=== PATIENT | female | born 1940 | race Caucasian/White ===

== ENCOUNTER → 2024-08-31 13:42 | Outpatient (REF) | payer MEDICARE, BC, SELFPAY | LOC: WDC 13:42 | PROVIDERS: ATTENDING PHYSICIAN Internal Medicine | DX: Z12.31 Encounter for screening mammogram for malignant neoplasm of breast (principal) | CPT/HCPCS: 77063; 77067 ==

== ENCOUNTER → 2025-03-18 09:08 | Outpatient (REF) | payer MEDICARE, BC, SELFPAY ==
[2025-03-18 12:42] LABS: % Basophils 0.8 % (0-2); % Eosinophils 1.4 % (0-6); % Immature Granulocytes 0.3 % (0-0.5); % Lymphocytes 43.9 % (20.5-51.1); % Neutrophils 43.6 % (42.2-75.2); Absolute Basophils 0.1 10^3/uL (0-0.2); Absolute Eosinophils 0.1 10^3/uL (0-0.7); Absolute Lymphocytes 3.5 10^3/uL (1.2-3.4); Absolute Monocytes 0.8 10^3/uL (0.1-0.6); Absolute Neutrophils 3.5 10^3/uL (1.4-6.5); Hematocrit 40.3 % (37.0-47.0); Hemoglobin 13.5 g/dL (12.0-16.0); Mean Corp Hgb Conc. 33.5 g/dL (33.0-37.0); Mean Corpuscular Hgb 30.9 pg (27.0-31.0); Mean Corpuscular Volume 92.2 fL (81.0-99.0); Mean Platelet Volume 11.1 fL (7.4-10.4); Nucleated Red Blood Cells % 0 %; Platelet Count 250 10^3/uL (130-400); Red Blood Cell Count 4.37 10^6/uL (4.20-5.40); Red Cell Dist. Width 13.2 % (11.5-14.5)
[2025-03-18 13:17] LABS: TSH Reflex To Free T4 0.05 uIU/ml (0.47-4.68)
[2025-03-18 13:27] LABS: ALT (SGPT) 14 U/L (0-35); AST (SGOT) 26 U/L (14-36); Albumin 4.3 g/dl (3.5-5.0); Alkaline Phosphatase 58 U/L (38-126); Blood Urea Nitrogen 17 mg/dl (7-17); Calcium 9.5 mg/dl (8.4-10.2); Carbon Dioxide 27 mmol/L (22-30); Chloride 103 mmol/L (98-107); Glucose 93 mg/dl (70-99); HDL Cholesterol 88 mg/dl; LDL Cholesterol, Calculated 104 mg/dl; Potassium 3.7 mmol/L (3.5-5.1); Sodium 138 mmol/L (135-145); Total Bilirubin 0.6 mg/dl (0.2-1.3); Total Cholesterol 213 mg/dl (50-199); Total Protein 6.8 g/dl (6.3-8.2); Triglyceride 106 mg/dl (10-149); Very Low Density Lipoprotein 21 mg/dl (0-30); eGFR 56.25
[2025-03-18 13:46] LABS: Free T4 1.84 ng/dl (0.78-2.19)
== END ==
LOC: HWLAB 09:08
PROVIDERS: ATTENDING PHYSICIAN Internal Medicine
DX: I10 Essential (primary) hypertension (principal); E03.9 Hypothyroidism, unspecified
CPT/HCPCS: 36415; 80053; 80061; 84439; 84443; 85025

== ENCOUNTER → 2025-05-14 09:38 | Outpatient (REF) | payer MEDICARE, BC, SELFPAY ==
[2025-05-14 12:35] LABS: ALT (SGPT) 15 U/L (0-35); AST (SGOT) 30 U/L (14-36); Albumin 4.5 g/dl (3.5-5.0); Alkaline Phosphatase 68 U/L (38-126); HDL Cholesterol 94 mg/dl; LDL Cholesterol, Calculated 108 mg/dl; Total Protein 7.0 g/dl (6.3-8.2); Very Low Density Lipoprotein 13 mg/dl (0-30)
[2025-05-14 12:52] LABS: Free T3 3.22 pg/ml (2.77-5.27)
[2025-05-14 13:06] LABS: TSH 0.79 uIU/ml (0.47-4.68)
== END ==
LOC: HWLAB 09:38
DX: E03.9 Hypothyroidism, unspecified (principal); E78.2 Mixed hyperlipidemia
CPT/HCPCS: 36415; 80061; 80076; 84439; 84443; 84481